=== PATIENT | female | born 1970 | race Caucasian/White ===

== ENCOUNTER → 2016-09-16 | Outpatient (REF) | payer BC | LOC: M LAB REF 16:25 | PROVIDERS: ATTEND Physician Assistant Medical | DX: N39.0 Urinary tract infection, site not specified (principal) ==

== ENCOUNTER → 2016-12-17 | Outpatient (REF) | payer BC ==
[2016-12-17 12:09] LABS: BASO % 0.9 % (0.0-1.0); EOS # 0.1 K/mm3 (0.0-0.50); EOS % 1.8 % (0.0-3.0); LARGE UNSTAINED CELL # 0.2 K/mm3 (0.0-0.4); LARGE UNSTAINED CELL % 2.7 % (0.0-4.0); LYMPH # 1.3 K/mm3 (1.5-4.5); LYMPH % 20.7 % (24.0-44.0); MEAN CORPUSCULAR HEMOGLOBIN 31.2 pg (27.0-33.0); MEAN CORPUSCULAR HGB CONC 33.1 g/dl (32.0-36.5); MEAN CORPUSCULAR VOLUME 94.2 fl (80.0-96.0); MONO # 0.4 K/mm3 (0.0-0.8); MONO % 6.8 % (0.0-5.0); NEUTROPHILS # 3.8 K/mm3 (1.8-7.7); NEUTROPHILS % 67.1 % (36.0-66.0); PLATELET COUNT, AUTOMATED 167 k/mm3 (150-450); WHITE BLOOD COUNT 5.6 K/mm3 (4.0-10.0)
[2016-12-17 13:15] LABS: ALBUMIN/GLOBULIN RATIO 1.29 (1.00-1.93); ALKALINE PHOSPHATASE 36 U/L (45-117); ALT/SGPT 20 U/L (12-78); ANION GAP 8 MEQ/L (8-16); AST/SGOT 21 U/L (15-37); BILIRUBIN,TOTAL 0.4 MG/DL (0.2-1.0); BLOOD UREA NITROGEN 9 MG/DL (7-18); CALCIUM LEVEL 9.3 MG/DL (8.5-10.1); CARBON DIOXIDE LEVEL 28 MEQ/L (21-32); CHLORIDE LEVEL 106 MEQ/L (98-107); CHOLESTEROL LEVEL 152 MG/DL (<200); CREATININE FOR GFR 0.72 MG/DL (0.55-1.02); GLOMERULAR FILTRATION RATE > 60.0 (>58); GLUCOSE, FASTING 89 MG/DL (70-105); POTASSIUM SERUM 4.1 MEQ/L (3.5-5.1); SODIUM LEVEL 142 MEQ/L (136-145); TOTAL PROTEIN 7.1 GM/DL (6.4-8.2); TRIGLYCERIDES LEVEL 34 MG/DL (<150)
== END ==
LOC: M SFHCPLAZ 10:06
PROVIDERS: ATTEND Nurse Practitioner Adult Health
DX: Z00.00 Encounter for general adult medical examination without abnormal findings (principal); Z80.6 Family history of leukemia

== ENCOUNTER → 2016-12-17 | Outpatient (REF) | payer BC | LOC: M LAB REF 13:09 | PROVIDERS: ATTEND Advanced Practice Midwife | DX: Z12.4 Encounter for screening for malignant neoplasm of cervix (principal) ==

== ENCOUNTER → 2017-12-29 | Outpatient (REF) | payer BC ==
[2017-12-29 17:55] LABS: ALBUMIN 4.1 GM/DL (3.2-5.2); ALBUMIN/GLOBULIN RATIO 1.28 (1.00-1.93); ALKALINE PHOSPHATASE 40 U/L (45-117); ALT/SGPT 16 U/L (12-78); ANION GAP 6 MEQ/L (8-16); AST/SGOT 14 U/L (7-37); BILIRUBIN,TOTAL 0.4 MG/DL (0.2-1.0); BLOOD UREA NITROGEN 8 MG/DL (7-18); CALCIUM LEVEL 8.8 MG/DL (8.5-10.1); CARBON DIOXIDE LEVEL 28 MEQ/L (21-32); CHLORIDE LEVEL 107 MEQ/L (98-107); CREATININE FOR GFR 0.67 MG/DL (0.55-1.30); GLOMERULAR FILTRATION RATE > 60.0 (>58); GLUCOSE, FASTING 78 MG/DL (70-100); POTASSIUM SERUM 3.7 MEQ/L (3.5-5.1); SODIUM LEVEL 141 MEQ/L (136-145); TOTAL PROTEIN 7.3 GM/DL (6.4-8.2)
[2017-12-29 18:00] LABS: HEMATOCRIT 38.1 % (36.0-47.0); HEMOGLOBIN 12.5 g/dl (12.0-15.5); MEAN CORPUSCULAR HEMOGLOBIN 29.8 pg (27.0-33.0); MEAN CORPUSCULAR HGB CONC 32.8 g/dl (32.0-36.5); MEAN CORPUSCULAR VOLUME 90.7 fl (80.0-96.0); PLATELET COUNT, AUTOMATED 180 10^3/uL (150-450); RED CELL DISTRIBUTION WIDTH 14.2 % (11.5-14.5)
== END ==
LOC: M SFHCPLAZ 17:07
DX: Z00.00 Encounter for general adult medical examination without abnormal findings (principal); Z80.6 Family history of leukemia
CPT/HCPCS: 84443

== ENCOUNTER → 2018-02-15 | Outpatient (REF) | payer BC ==
[2018-02-18 14:16] LABS: HPV LOW VOL RFLX Positive (Negative)
== END ==
LOC: M LAB REF 09:35
DX: Z12.4 Encounter for screening for malignant neoplasm of cervix (principal)
CPT/HCPCS: G0123

== ENCOUNTER → 2018-06-13 | Outpatient (REF) | payer BC | LOC: M SFHCPLAZ 06-14 10:11 | DX: D22.9 Melanocytic nevi, unspecified (principal) | CPT/HCPCS: 88304 ==

== ENCOUNTER → 2019-01-20 | Outpatient (CLI) | payer BC ==
[2019-01-20 13:51] LABS: HEMOGLOBIN 12.3 g/dl (12.0-15.5); MEAN CORPUSCULAR HEMOGLOBIN 29.3 pg (27.0-33.0); MEAN CORPUSCULAR HGB CONC 31.5 g/dl (32.0-36.5); MEAN CORPUSCULAR VOLUME 92.9 fl (80.0-96.0); PLATELET COUNT, AUTOMATED 186 10^3/uL (150-450); WHITE BLOOD COUNT 5.8 10^3/uL (4.0-10.0)
[2019-01-20 14:17] LABS: ALBUMIN 3.4 GM/DL (3.2-5.2); ALT/SGPT 18 U/L (12-78); BILIRUBIN,TOTAL 0.3 MG/DL (0.2-1.0); BLOOD UREA NITROGEN 12 MG/DL (7-18); CALCIUM LEVEL 8.8 MG/DL (8.5-10.1); CARBON DIOXIDE LEVEL 26 MEQ/L (21-32); CHLORIDE LEVEL 108 MEQ/L (98-107); CHOLESTEROL LEVEL 136 MG/DL (<200); CHOLESTEROL RISK RATIO 2.472 (<5); CREATININE FOR GFR 0.68 MG/DL (0.55-1.30); GLOMERULAR FILTRATION RATE > 60.0 (>51); GLUCOSE, FASTING 90 MG/DL (70-100); HDL CHOLESTEROL 55 MG/DL (>40); LDL CHOLESTEROL 74 MG/DL (<100); NON-HDL-C 81 MG/DL; POTASSIUM SERUM 4.4 MEQ/L (3.5-5.1); SODIUM LEVEL 140 MEQ/L (136-145); THYROID STIMULATING HORMONE 0.962 uIU/ML (0.358-3.740); TOTAL PROTEIN 7.4 GM/DL (6.4-8.2); TRIGLYCERIDES LEVEL 34 MG/DL (<150)
== END ==
LOC: M SMT 08:24
PROVIDERS: ATTEND Nurse Practitioner Adult Health
DX: Z00.00 Encounter for general adult medical examination without abnormal findings (principal)

== ENCOUNTER → 2019-06-13 | Outpatient (REF) | payer BC ==
[2019-06-15 14:07] LABS: HPV HYBRID CAPTURE II Positive (Negative)
== END ==
LOC: M LAB REF 17:19
PROVIDERS: ATTEND Advanced Practice Midwife
DX: Z12.4 Encounter for screening for malignant neoplasm of cervix (principal)
CPT/HCPCS: 87624; G0123

== ENCOUNTER → 2019-07-13 | Outpatient (REF) | payer BC | LOC: M LAB REF 16:28 | PROVIDERS: ATTEND Physician Assistant | DX: R30.0 Dysuria (principal) ==

== ENCOUNTER 2020-03-06 04:38 | Day surgery (SDC) | payer BC ==
[2020-03-06] VITALS (7 sets, daily range): BP systolic 101–116; BP diastolic 52–72
[~2020-03-06] VITALS: Ht 175.3 cm; Wt 81.8 kg
[2020-03-06 05:14] LABS: APPEARANCE, URINE CLEAR (CLEAR); BACTERIA, URINE AUTO NEGATIVE (NEGATIVE); BILIRUBIN, URINE AUTO NEGATIVE (NEGATIVE); BLOOD, URINE BLOOD NEGATIVE (NEGATIVE); COLOR, URINE COLORLESS (YELLOW); GLUCOSE, URINE (UA) AUTO NEGATIVE (NEGATIVE); KETONE, URINE AUTO NEGATIVE (NEGATIVE); LEUKOCYTE ESTERASE, URINE AUTO NEGATIVE (NEGATIVE); NITRITE, URINE AUTO NEGATIVE (NEGATIVE); PROTEIN, URINE AUTO NEGATIVE (NEGATIVE); RBC, URINE AUTO 0 /HPF (0-3); SPECIFIC GRAVITY URINE AUTO 1.001 (1.002-1.035); SQUAMOUS EPITHELIAL CELL UR AU 0 /HPF (0-6); UROBILINOGEN, URINE AUTO 0.2 mg/dL (0.0-2.0); WBC, URINE AUTO 0 /HPF (0-3)
[2020-03-06] MEDS ORDERED: NS 1,000 ML IV ONE (05:15)
[2020-03-06 05:18] LABS: BASO # 0.1 10^3/uL (0.0-0.2); BASO % 0.7 % (0.0-1.0); EOS # 0.2 10^3/uL (0.0-0.5); EOS % 2.9 % (0.0-3.0); HEMATOCRIT 39.5 % (36.0-47.0); HEMOGLOBIN 12.8 g/dl (12.0-15.5); LYMPH # 1.1 10^3/uL (1.5-5.0); LYMPH % 13.2 % (24.0-44.0); MEAN CORPUSCULAR HEMOGLOBIN 29.2 pg (27.0-33.0); MEAN CORPUSCULAR HGB CONC 32.4 g/dl (32.0-36.5); MONO # 0.7 10^3/uL (0.0-0.8); MONO % 8.3 % (0.0-5.0); NEUTROPHILS # 6.2 10^3/uL (1.5-8.5); NEUTROPHILS % 74.5 % (36.0-66.0); PLATELET COUNT, AUTOMATED 200 10^3/uL (150-450); RED BLOOD COUNT 4.39 10^6/uL (4.00-5.40); WHITE BLOOD COUNT 8.3 10^3/uL (4.0-10.0)
[2020-03-06 05:40] LABS: ALBUMIN 3.5 GM/DL (3.2-5.2); ALT/SGPT 16 U/L (12-78); BILIRUBIN,DIRECT < 0.1 MG/DL (0.0-0.2); BILIRUBIN,TOTAL 0.2 MG/DL (0.2-1.0); BLOOD UREA NITROGEN 12 MG/DL (7-18); CALCIUM LEVEL 8.7 MG/DL (8.5-10.1); CARBON DIOXIDE LEVEL 24 MEQ/L (21-32); CHLORIDE LEVEL 108 MEQ/L (98-107); CREATININE FOR GFR 0.79 MG/DL (0.55-1.30); GLOMERULAR FILTRATION RATE > 60.0 (>51); GLUCOSE, FASTING 95 MG/DL (70-100); HCG, SERUM QUALITATIVE NEGATIVE (NEGATIVE); LIPASE 100 U/L (73-393); POTASSIUM SERUM 3.7 MEQ/L (3.5-5.1); SODIUM LEVEL 139 MEQ/L (136-145); TOTAL PROTEIN 7.1 GM/DL (6.4-8.2)
[2020-03-06] MEDS ORDERED: KETOROLAC 30 MG/ML 1ML VIAL IV ONE (05:45)
[2020-03-06 05:49] LABS: AMPHETAMINES LEVEL URINE NEGATIVE (NEGATIVE); BARBITURATES URINE NEGATIVE (NEGATIVE); BENZODIAZEPINES URINE NEGATIVE (NEGATIVE); CANNABINOIDS URINE NEGATIVE (NEGATIVE); COCAINE METABOLITE URINE NEGATIVE (NEGATIVE); METHADONE URINE NEGATIVE (NEGATIVE); OPIATES URINE NEGATIVE (NEGATIVE); PHENCYCLIDINE URINE NEGATIVE (NEGATIVE)
[2020-03-06] MEDS ORDERED: ISOVUE-370 76% 100ML VIAL As Ordered ONE (05:56)
--- NOTE | 2020-03-06 06:27 | REPVR ---
PROCEDURE INFORMATION: Exam: CT Abdomen And Pelvis With Contrast Exam date and time: 03/06/2020 5:41 AM Age: 49 years old Clinical indication: Abdominal pain; Localized; Right lower quadrant (rlq); Additional info: Rlq pain TECHNIQUE: Imaging protocol: Computed tomography of the abdomen and pelvis with intravenous contrast. Radiation optimization: All CT scans at this facility use at least one of these dose optimization techniques: automated exposure control; mA and/or kV adjustment per patient size (includes targeted exams where dose is matched to clinical indication); or iterative reconstruction. Contrast material: ISO; Contrast volume: 100 ml; Contrast route: INTRAVENOUS (IV); COMPARISON: No relevant prior studies available. FINDINGS: Liver: The liver attenuation is 74 Hounsfield units and the spleen is 114 Hounsfield units. Probable small hepatic cyst medially measuring 9 mm. Gallbladder and bile ducts: Normal. No calcified stones. No ductal dilation. Pancreas: Normal. No ductal dilation. Spleen: Normal. No splenomegaly. Adrenals: Normal. No mass. Kidneys and ureters: Extrarenal pelvis of the right kidney. Stomach and bowel: Question of slight wall thickening of the ascending and transverse colon. Appendix: The appendix is enlarged measuring 14 mm with surrounding induration and several appendicoliths including one at the junction with the cecal tip. Intraperitoneal space: Minimal free fluid in the pelvis which is physiologic in amount. Vasculature: Unremarkable. No abdominal aortic aneurysm. Lymph nodes: Unremarkable. No enlarged lymph nodes. Bladder: Unremarkable as visualized. Reproductive: Tampon in position. Bones/joints: Unremarkable. No acute fracture. Soft tissues: Unremarkable. IMPRESSION: 1. Appendicitis with appendicoliths. 2. Fatty infiltration of the liver. 3. Question of mild nonspecific segmental colitis of the ascending and transverse colon. Electronically signed by: Kingsley Benton On 03/06/2020 06:26:45 AM
[2020-03-06] MEDS ORDERED: AMPICILLIN SOD/SULBACTAM SOD 3 GM in D5W MINI-BAG PLUS 100 ML IV ONE ×2 (06:30→12:00)
[2020-03-06] MEDS ORDERED: MORPHINE 4 MG/ML 1ML VIAL/SYRINGE (J2270) IV ONE (06:30)
[2020-03-06] MEDS ORDERED: ONDANSETRON 4MG/2ML VIAL As Ordered ONE ×2 (08:52→18:21)
[2020-03-06] MEDS ORDERED: ONDANSETRON 4MG/2ML VIAL IV ONE (09:00)
[2020-03-06] MEDS ORDERED: MORPHINE 4 MG/ML 1ML VIAL/SYRINGE (J2270) IV PRN ×2 (12:30→17:00)
[2020-03-06] MEDS ORDERED: ONDANSETRON 4MG/2ML VIAL IV PRN ×3 (12:30→19:30)
[2020-03-06] MEDS ORDERED: AMPICILLIN SOD/SULBACTAM SOD 3 GM in D5W MINI-BAG PLUS 100 ML IV SCH (13:00)
[2020-03-06] MEDS ORDERED: BUPIVACAINE HCL 0.25% 30ML VIAL As Ordered ONE (17:44)
[2020-03-06] MEDS ORDERED: LIDOCAINE 1% SDV 30ML VIAL As Ordered ONE (17:44)
[2020-03-06] MEDS ORDERED: SUCCINYLCHOLINE 100 MG/5 ML SYRINGE (J0330) As Ordered ONE (17:45)
[2020-03-06] MEDS ORDERED: dexameTHASONE 4 MG/ML 1ML VIAL (J1100 PER 1MG) As Ordered ONE (18:21)
[2020-03-06] MEDS ORDERED: LIDOCAINE 2% 100MG/5ML SDV (FOR ANES.) As Ordered ONE (18:21)
[2020-03-06] MEDS ORDERED: propofoL 200 MG/20 ML VIAL As Ordered ONE (18:21)
[2020-03-06] MEDS ORDERED: METOCLOPRAMIDE INJ 10MG/2ML VIAL (J2765 PER 1) As Ordered ONE (18:21)
[2020-03-06] MEDS ORDERED: fentaNYL 100 MCG/2 ML INJECTION (J3010) As Ordered ONE (18:21)
[2020-03-06] MEDS ORDERED: PHENYLephrine HCL 500 MCG/5 ML (100MCG/ML) SYRINGE (J2370) As Ordered ONE (18:21)
[2020-03-06] MEDS ORDERED: MIDAZOLAM INJ 2MG/2ML VIAL (J2250 PER 1MG) As Ordered ONE (18:21)
[2020-03-06] MEDS ORDERED: SUGAMMADEX SODIUM 500 MG/5 ML VIAL (BRIDION) As Ordered ONE (18:21)
[2020-03-06] MEDS ORDERED: ROCURONIUM BROMIDE 50 MG/5 ML VIAL As Ordered ONE (18:21)
[2020-03-06] MEDS ORDERED: KETOROLAC 60MG 2ML VIAL As Ordered ONE (18:25)
[2020-03-06] MEDS ORDERED: ACETAMINOPHEN 1000MG 100ML IV BTL (OFIRMEV) (J0131 PER 10MG) As Ordered ONE (18:25)
[2020-03-06] MEDS ORDERED: UNASYN 1.5 GM VIAL As Ordered ONE (18:29)
[2020-03-06] MEDS: LR 1,000 ML IV SCH (19:20)
[2020-03-06] MEDS ORDERED: KETOROLAC 30 MG/ML 1ML VIAL IV PRN (19:30)
[2020-03-06] MEDS ORDERED: ACETAMINOPHEN TAB 650MG DOSE (2X325MG) PO PRN (19:30)
[2020-03-06] MEDS ORDERED: oxyCODONE 5MG TAB PO PRN (19:30)
[2020-03-06] MEDS ORDERED: LR 1,000 ML IV SCH (19:30)
[2020-03-06] MEDS ORDERED: fentaNYL 100 MCG/2 ML INJECTION (J3010) IV PRN (19:30)
[2020-03-06] MEDS ORDERED: MORPHINE 2 MG/ML 1ML VIAL (J2270) IV PRN (19:30)
[2020-03-06] MEDS ORDERED: PERCOCET 5MG/325MG TAB PO PRN ×2 (19:30)
[2020-03-06] MEDS: SENOKOT S TAB PO SCH (21:42)
[2020-03-07 00:30] VITALS: BP 107/61
[2020-03-07] MEDS: AMPICILLIN SOD/SULBACTAM SOD 3 GM in D5W MINI-BAG PLUS 100 ML IV SCH ×2 (00:40→05:19)
[2020-03-07] MEDS: LR 1,000 ML IV SCH (05:20)
[2020-03-07 06:00] VITALS: BP 95/58
--- NOTE | 2020-03-07 06:18 | ROOPDOC ---
[facility] Report Of Operation Report of Operation DATE OF PROCEDURE: 03/06/20 PREPROCEDURE DIAGNOSES: Acute Appendicitis. POSTPROCEDURE DIAGNOSES: Acute Appendicitis with perforation without abscess. PROCEDURE: Laparoscopic Appendectomy. SURGEON: Lisbeth Farrar MD TAXICAB COORDINATOR: ANESTHESIA: General Anesthesia. ESTIMATED BLOOD LOSS: Approximately 10 mL. COMPLICATIONS: none. REMARKS: enlarge appendicx with a couple of areas of dilation from an appendicolith including that of the base of the appendix with focal perforation at the midportion of the appendix, small amount of serous ascites in the pelvis and around the liver, no organized abscess. DESCRIPTION OF PROCEDURE: Patient has been given a dose of Zosyn in the emergency room and was on scheduled doses of Unasyn 3 gm IV Q 6 hrs while awaiting OR.Patient was brought to the operating room, placed supine on the table. Sequential compression device placed for DVT prophylaxis. General endotracheal anesthesia started. The abdomen prepped and draped in usual sterile fashion. We paused for a surgical timeout using both pre-incision safety checklist to verify correct patient, procedure site and additional clinical information prior to beginning the procedure Entry into the abdomen done through an incision above the umbilicus. Veress needle inserted on a controlled fashion. Intra-abdominal placement confirmed with saline drop technique. CO2 insufflation started to a pressure of 15 mmHg. Using the same incision an 8 mm port was placed under direct vision of laparoscope. Insertion site was inspected for injury and none was found. He was placed on a Trendelenburg position the right side tilted to about 30 to allow for better visualization of the appendix. Two 5 mm working ports were placed at the suprapubic area and left lower quadrant area under direct vision. Operative findings: There is a small amount of serous fluid in the pelvis and around the liver. The appendix is inflamed and adhered in between the lateral wall of the cecum and the anterolateral abdominal wall covered with exudates. The appendix is noted to be distended and acutely inflamed with 2 points of distention at the mid appendix and at the base of the appendix and looks to have a focal perforation in between this to distentions would've fecalith are located with drainage of brownish murky fluid although there are no organized abscesses or fluid collections. The visible portions of the small bowel appears normal without any reactive inflammation enteritis. The course of the appendix is close to the insertion of the terminal ileum. The appendix was located, this was bluntly dissected free from the right anterolateral abdominal wall and also to the lateral sidewall of the cecum. The Surrounding bowels retracted away from the appendix. This was grasped to pull the base of the appendix into view. The peritoneal fluid collection was collected to be sent for Gram stain and culture. The perforation is noted between the 2 fecaliths. There is still about a 1 cm portion of the base that appears relatively intact, inflamed. The base of the appendix is located near the insertion of the terminal ileum. The mesoappendix was divided using Harmonic scalpel down to the base. I upsized my umbilical port to a 12 mm port to accommodate the stapler. Using a 45 mm Endo CHARMAINE stapler with a blue load the appendix was divided at its base past the area of perforation. The staple line is inspected and appears healthy. Appendix was then delivered into an Endo Catch bag and retrieved. After re-insufflation the surgical site was inspected for hemostasis, the visualized fluid collections irrigated and suctioned off until clear return. Surrounding areas of the abdomen and inspected for fluid collections or signs of injury. The abdomen was deflated. All ports removed. The umbilical fascial defect repaired with 0 Vicryl in a mattress fashion using a Andrew Griffin device. All skin incisions closed with 4-0 Monocryl in a subcuticular fashion. Dermabond used for dressing.. Patient was promptly awake a nd extubated and brought to recovery room stable. All counts of sponges and instruments verified to be correct. LISBETH FARRAR MD Mar 07, 2020 06:18
[2020-03-07 08:00] VITALS: BP 98/60
[2020-03-07 08:47] LABS: BASO % 0.1 % (0.0-1.0); LYMPH # 0.9 10^3/uL (1.5-5.0); LYMPH % 6.6 % (24.0-44.0); MEAN CORPUSCULAR HEMOGLOBIN 29.5 pg (27.0-33.0); MEAN CORPUSCULAR HGB CONC 32.5 g/dl (32.0-36.5); MEAN CORPUSCULAR VOLUME 90.7 fl (80.0-96.0); MONO # 0.8 10^3/uL (0.0-0.8); MONO % 6.2 % (0.0-5.0); NEUTROPHILS # 11.6 10^3/uL (1.5-8.5); NEUTROPHILS % 86.1 % (36.0-66.0); PLATELET COUNT, AUTOMATED 162 10^3/uL (150-450); RED BLOOD COUNT 3.53 10^6/uL (4.00-5.40); WHITE BLOOD COUNT 13.4 10^3/uL (4.0-10.0)
[2020-03-07 08:54] LABS: HEMOGLOBIN 10.4 g/dl (12.0-15.5)
[2020-03-07] MEDS: SENOKOT S TAB PO SCH (08:56)
[2020-03-07 09:07] LABS: BLOOD UREA NITROGEN 7 MG/DL (7-18); CALCIUM LEVEL 8.4 MG/DL (8.5-10.1); CARBON DIOXIDE LEVEL 27 MEQ/L (21-32); CHLORIDE LEVEL 106 MEQ/L (98-107); CREATININE FOR GFR 0.72 MG/DL (0.55-1.30); GLOMERULAR FILTRATION RATE > 60.0 (>51); GLUCOSE, FASTING 128 MG/DL (70-100); POTASSIUM SERUM 3.3 MEQ/L (3.5-5.1); SODIUM LEVEL 140 MEQ/L (136-145)
[2020-03-07] MEDS ORDERED: PERCOCET PO (09:34)
[2020-03-07] MEDS ORDERED: AMOX875T2 PO (09:43)
[2020-03-07] MEDS ORDERED: METR-265 PO (09:45)
== END 2020-03-07 10:50 | disposition home or self-care (01) ==
LOC: M ED 04:38 → M SDC 07:46 → ENRESERV 07:56 → M PED 11:00 → M SDC 03-07 10:50
PROVIDERS: ATTEND Surgery
DX: K35.33 Acute appendicitis with perforation, localized peritonitis, and gangrene, with abscess (principal)
CPT/HCPCS: 36415; 44970; 74177; 80048; 80076; 80307; 81001; 83690; 84703; 85025; 87070; 87075; 87076; 87077; 87186; 87205; 87486; 87581; 87633; 87798; 88304; 96361; 96365; 96366; 96375; 96376; 99285; J0131; J0330; J1100; J1885; J2250; J2270; J2370; J2405; J2765; J3010; Q9967

== ENCOUNTER 2020-04-22 07:55 | Emergency (ER) | payer BC ==
[~2020-04-22 07:55] MED LIST: AMOX875T2 PO; METR-265 PO; PERCOCET PO
[2020-04-22] MEDS ORDERED: ACETAMINOPHEN 500 MG TAB ONE (08:30)
== END 2020-04-22 09:33 | disposition home or self-care (01) ==
LOC: M ED 07:55
DX: S93.401A Sprain of unspecified ligament of right ankle, initial encounter (principal); S80.212A Abrasion, left knee, initial encounter; S50.02XA Contusion of left elbow, initial encounter; X50.1XXA Overexertion from prolonged static or awkward postures, initial encounter; Y92.89 Other specified places as the place of occurrence of the external cause; Y93.01 Activity, walking, marching and hiking; Y99.0 Civilian activity done for income or pay

== ENCOUNTER → 2020-09-20 | Outpatient (REF) | payer BC ==
[2020-09-20 10:38] LABS: HEMATOCRIT 39.5 % (36.0-47.0); HEMOGLOBIN 12.2 g/dl (12.0-15.5); MEAN CORPUSCULAR HEMOGLOBIN 27.2 pg (27.0-33.0); MEAN CORPUSCULAR HGB CONC 30.9 g/dl (32.0-36.5); MEAN CORPUSCULAR VOLUME 88.2 fl (80.0-96.0); PLATELET COUNT, AUTOMATED 212 10^3/uL (150-450); RED BLOOD COUNT 4.48 10^6/uL (4.00-5.40); WHITE BLOOD COUNT 4.8 10^3/uL (4.0-10.0)
[2020-09-20 11:11] LABS: ALBUMIN 4.2 GM/DL (3.2-5.2); ALT/SGPT 21 U/L (12-78); BILIRUBIN,TOTAL 0.3 MG/DL (0.2-1.0); BLOOD UREA NITROGEN 13 MG/DL (7-18); CALCIUM LEVEL 9.1 MG/DL (8.5-10.1); CARBON DIOXIDE LEVEL 27 MEQ/L (21-32); CHLORIDE LEVEL 107 MEQ/L (98-107); CHOLESTEROL LEVEL 184 MG/DL (<200); CHOLESTEROL RISK RATIO 2.358 (<5); CREATININE FOR GFR 0.78 MG/DL (0.55-1.30); FERRITIN 9 NG/ML (8-252); GLOMERULAR FILTRATION RATE > 60.0 (>51); GLUCOSE, FASTING 91 MG/DL (70-100); HDL CHOLESTEROL 78 MG/DL (>40); IRON (FE) 34 UG/DL (50-170); LDL CHOLESTEROL 97 MG/DL (<100); NON-HDL-C 106 MG/DL; PERCENT SATURATION 8.4 % (13.2-45.0); POTASSIUM SERUM 4.5 MEQ/L (3.5-5.1); SODIUM LEVEL 138 MEQ/L (136-145); TOTAL IRON BINDING CAPACITY 407 UG/DL (250-450); TOTAL PROTEIN 7.2 GM/DL (6.4-8.2); TRIGLYCERIDES LEVEL 43 MG/DL (<150)
== END ==
LOC: M SFHCPLAZ 08:16
PROVIDERS: ATTEND Nurse Practitioner Adult Health
DX: Z00.00 Encounter for general adult medical examination without abnormal findings (principal); Z80.6 Family history of leukemia; Z86.2 Personal history of diseases of the blood and blood-forming organs and certain disorders involving the immune mechanism; Z13.29 Encounter for screening for other suspected endocrine disorder; Z13.220 Encounter for screening for lipoid disorders

== ENCOUNTER → 2020-09-24 | Outpatient (CLI) | payer BC ==
--- NOTE | 2020-09-24 15:38 | REPMRS ---
Patient History The patient states she has not had a clinical breast exam in over a year. 3D TOMOSYNTHESIS WAS PERFORMED. The [facility] lifetime risk for breast cancer is 8.0%. Volpara breast density b. Digital Woman Screen Mammo: September 24, 2020 - Exam #: [id number] Bilateral CC and MLO view(s) were taken. Technologist: Shiloh Rodrigues Technologist FINDINGS: The breast tissue is heterogeneously dense. This may lower the sensitivity of mammography. There has been no change in the appearance of the mammogram from the prior studies. There is a moderate amount of residual fibroglandular tissue which is fairly symmetric. There is no interval development of dominant mass, areas of architectural distortion, or clustered microcalcification typical of malignancy. Assessment: BI-RADS/ACR category 1 mammogram. Negative Mammogram. Recommendation Routine screening mammogram in 1 year (for women over age 40). This mammogram was interpreted with the aid of an FDA-approved computer-aided dectection system. Electronically Signed By: Brodie Tejeda MD 09/24/20 [id number]
== END ==
LOC: M WHC 14:39
PROVIDERS: ATTEND Nurse Practitioner Adult Health
DX: Z12.31 Encounter for screening mammogram for malignant neoplasm of breast (principal)

== ENCOUNTER → 2020-12-03 | Outpatient (REF) | payer BC | LOC: M SFHCWAGY 09:40 | PROVIDERS: ATTEND Advanced Practice Midwife | DX: Z12.4 Encounter for screening for malignant neoplasm of cervix (principal) ==

== ENCOUNTER → 2020-12-23 | Outpatient (REF) | LOC: M LABSMTC 10:54 | PROVIDERS: ATTEND Pediatrics | DX: Z11.52 Encounter for screening for COVID-19 (principal) ==

== ENCOUNTER → 2021-01-22 | Outpatient (CLI) | payer BC ==
--- NOTE | 2021-01-24 01:46 | REP ---
INDICATION: N93.9 ABNORMAL UTERINE AND VAGINAL BLEEDING COMPARISON: None. TECHNIQUE: Transabdominal pelvic ultrasound followed by transvaginal examination for better evaluation of the endometrium and adnexa with color Doppler evaluation of the ovaries. FINDINGS: Bladder is unremarkable and measures 11.0 x 9.0 x 9.7 cm. Normal anteverted uterus measures 9.7 x 4.5 x 4.8 cm. The endometrial complex measures 15 mm thickness. No discrete uterine or endometrial abnormalities are appreciated. Bilateral ovaries are normal in appearance and vascularity without evidence for torsion. Right ovary measures 1.5 x 1.4 x 1.5 cm with 1.5 cm dominant follicle; R I = 0.51. Left ovary measures 1.8 x 1.0 x 2.1 cm; R I = 0.51. No pelvic fluid or adnexal mass lesion. IMPRESSION: Normal pelvic ultrasound. <Electronically signed by Harsha Deras > 01/24/21 [id number]
== END ==
LOC: M WHC 13:27
PROVIDERS: ATTEND Obstetrics & Gynecology
DX: N93.9 Abnormal uterine and vaginal bleeding, unspecified (principal)

== ENCOUNTER → 2021-02-04 | Outpatient (CLI) | payer BC ==
--- NOTE | 2021-02-04 20:53 | ECGEPIP ---
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
== END ==
LOC: M RAD 15:33
PROVIDERS: ATTEND Obstetrics & Gynecology
DX: D64.9 Anemia, unspecified (principal); Z98.51 Tubal ligation status

== ENCOUNTER → 2021-02-07 | Outpatient (CLI) | payer BC | LOC: M LABSMTC 12:42 | PROVIDERS: ATTEND Anesthesiology | DX: Z01.812 Encounter for preprocedural laboratory examination (principal); Z20.822 Contact with and (suspected) exposure to COVID-19 ==

== ENCOUNTER 2021-02-12 12:49 | Day surgery (SDC) | payer BC ==
[~2021-02-12] VITALS: Ht 175.3 cm; Wt 80.2 kg
[~2021-02-12 12:49] MED LIST changes: +LIDOCAINE 1% MDV 20ML VIAL SQ PRN; +LR 1,000 ML IV ONE
[2021-02-12] MEDS ORDERED: VITMTA PO (13:12)
[2021-02-12 13:23] LABS: HEMATOCRIT 38.3 % (36.0-47.0); MEAN CORPUSCULAR HEMOGLOBIN 28.4 pg (27.0-33.0); MEAN CORPUSCULAR HGB CONC 31.3 g/dl (32.0-36.5); MEAN CORPUSCULAR VOLUME 90.8 fl (80.0-96.0); PLATELET COUNT, AUTOMATED 191 10^3/uL (150-450); RED BLOOD COUNT 4.22 10^6/uL (4.00-5.40); WHITE BLOOD COUNT 5.5 10^3/uL (4.0-10.0)
[2021-02-12] MEDS ORDERED: fentaNYL 100 MCG/2 ML INJECTION (J3010) As Ordered ONE (13:30)
--- NOTE | 2021-02-12 14:28 | ROOPDOC ---
[facility] Report Of Operation Report of Operation DATE OF PROCEDURE: 02/12/21 PREOPERATIVE DIAGNOSIS: Abnormal uterine bleeding. POSTOPERATIVE DIAGNOSIS: Abnormal uterine bleeding. PROCEDURE PERFORMED: Hysteroscopy, dilation and curettage with NovaSure ablation. SURGEON: Jacquelin Shay MD REGIONAL HR MANAGER: None. ANESTHESIA: General. ESTIMATED BLOOD LOSS: 5 mL. INTRAVENOUS FLUIDS: 1 liter of lactated Ringer's solution. URINE OUTPUT: 25ml. SPECIMENS: Endometrial curettings. OPERATIVE FINDINGS: The patient with thickened endometrium with bilateral ostia visualized, cavity measured 6.5 x 4.2 cm. Postablation showed desiccation of the endometrium. Ablation lasted approximately 58 seconds. DESCRIPTION OF OPERATION: After informed consent was obtained and written consent was reviewed, the patient was brought to the operating room where she was placed under general anesthesia. She was then placed in lithotomy position, was prepped and draped in a normal sterile fashion. A time out in the operating room was then performed identifying the patient, procedure be performed as well as drug allergies. Lawton speculum was then placed revealing the cervix and the anterior lip of cervix was grasped with a single-tooth tenaculum. The cervix was sounded and the uterine length was obtained. The cervix was then sequentially dilated with Hanks dilators. Hysteroscope was then advanced through the cervical os and the endometrium was surveyed showing a thickened endometrium. Bilateral ostia was visualized. Hysteroscope was then removed and the NovaSure device was then placed through the cervical os where the uterine width was obtained. Uterine width as well as the length was then entered into the device, a cavity assessme nt was performed and ablation was followed for approximately 58seconds. The NovaSure was then removed. The mesh was inspected noted to be intact. Hysteroscope was then advanced showing desiccation of the endometrium. Hysteroscope was then removed. Single-tooth tenaculum was removed. Tenaculum sites were noted be hemostatic. Speculum was then removed. The patient was then taken out of lithotomy position was awakened from general anesthesia and taken recovery in stable condition. Counts were correct. JACQUELIN SHAY MD. Feb 12, 2021 14:28
[2021-02-12] MEDS ORDERED: dexameTHASONE 4 MG/ML 1ML VIAL (J1100 PER 1MG) As Ordered ONE (14:50)
[2021-02-12] MEDS ORDERED: propofoL 200 MG/20 ML VIAL As Ordered ONE (14:50)
[2021-02-12] MEDS ORDERED: LIDOCAINE 2% 100MG/5ML SDV (FOR ANES.) As Ordered ONE (14:50)
[2021-02-12] MEDS ORDERED: ONDANSETRON 4MG/2ML VIAL As Ordered ONE (14:50)
[2021-02-12] MEDS ORDERED: METOCLOPRAMIDE INJ 10MG/2ML VIAL (J2765 PER 1) As Ordered ONE (14:50)
[2021-02-12] MEDS ORDERED: MIDAZOLAM INJ 2MG/2ML VIAL (J2250 PER 1MG) As Ordered ONE (14:50)
[2021-02-12] MEDS ORDERED: KETOROLAC 60MG 2ML VIAL As Ordered ONE (14:53)
[2021-02-12] MEDS ORDERED: ePHEDrine SULFATE 25 MG/5 ML(5MG/ML) SYRINGE As Ordered ONE (15:11)
[2021-02-12] MEDS ORDERED: fentaNYL 100 MCG/2 ML INJECTION (J3010) IV PRN (15:40)
[2021-02-12] MEDS ORDERED: LR 1,000 ML IV SCH (15:40)
[2021-02-12] MEDS ORDERED: ONDANSETRON 4MG/2ML VIAL IV PRN (15:40)
[2021-02-12] MEDS ORDERED: oxyCODONE 5MG TAB PO PRN (15:40)
[2021-02-12] MEDS ORDERED: PERCOCET 5MG/325MG TAB PO PRN (15:40)
[2021-02-12 16:50] VITALS: BP 149/65
[2021-02-12] MEDS ORDERED: KETOROLAC 30 MG/ML 1ML VIAL IV SCH (21:00)
== END 2021-02-12 16:57 | disposition home or self-care (01) ==
LOC: M SDC 12:49
PROVIDERS: ATTEND Obstetrics & Gynecology
DX: N93.9 Abnormal uterine and vaginal bleeding, unspecified (principal); N85.00 Endometrial hyperplasia, unspecified
CPT/HCPCS: 36415; 58563; 85027; 86850; 86900; 86901; 88305; J1100; J1885; J2250; J2405; J2765; J3010

== ENCOUNTER → 2021-07-16 | Outpatient (CLI) | payer BC ==
[~2021-07-16] MED LIST changes: -LIDOCAINE 1% MDV 20ML VIAL SQ PRN; -LR 1,000 ML IV ONE; +VITMTA PO
--- NOTE | 2021-07-16 15:15 | REP ---
INDICATION: PAIN IN RIGHT HIP. COMPARISON: None TECHNIQUE: AP and frog-lateral views FINDINGS: The hip joint space is symmetric and relatively well maintained. There might be minimal narrowing. There is no prominent marginal osteophytosis, buttressing, fracture, dislocation or subluxation. Degenerative changes are seen involving the sacroiliac joint. IMPRESSION: Possible minimal degenerative hip changes. <Electronically signed by Kaleb Alonso > 07/16/21 [id number]
== END ==
LOC: M PLAIMG 14:37
PROVIDERS: ATTEND Nurse Practitioner Adult Health
DX: M25.551 Pain in right hip (principal)

== ENCOUNTER → 2021-11-13 | Outpatient (CLI) | payer BC ==
[2021-11-13 11:33] LABS: HEMATOCRIT 42.3 % (36.0-47.0); HEMOGLOBIN 14.2 g/dl (12.0-15.5); MEAN CORPUSCULAR HEMOGLOBIN 31.9 pg (27.0-33.0); MEAN CORPUSCULAR HGB CONC 33.6 g/dl (32.0-36.5); MEAN CORPUSCULAR VOLUME 95.1 fl (80.0-96.0); PLATELET COUNT, AUTOMATED 174 10^3/uL (150-450); RED BLOOD COUNT 4.45 10^6/uL (4.00-5.40); WHITE BLOOD COUNT 5.2 10^3/uL (4.0-10.0)
[2021-11-13 12:28] LABS: ALT/SGPT 23 U/L (12-78); BILIRUBIN,TOTAL 0.5 MG/DL (0.2-1.0); BLOOD UREA NITROGEN 13 MG/DL (7-18); CALCIUM LEVEL 9.8 MG/DL (8.5-10.1); CARBON DIOXIDE LEVEL 27 MEQ/L (21-32); CHLORIDE LEVEL 107 MEQ/L (98-107); CHOLESTEROL LEVEL 175 MG/DL (<200); CREATININE FOR GFR 0.69 MG/DL (0.55-1.30); GLOMERULAR FILTRATION RATE > 60.0 (>51); GLUCOSE, FASTING 85 MG/DL (70-100); HDL CHOLESTEROL 70 MG/DL (>40); IRON (FE) 96 UG/DL (50-170); LDL CHOLESTEROL 94 MG/DL (<100); NON-HDL-C 105 MG/DL; POTASSIUM SERUM 4.8 MEQ/L (3.5-5.1); SODIUM LEVEL 141 MEQ/L (136-145); TOTAL 25(OH) VITAMIN D 57.8 NG/ML (30.0-100.0); TOTAL IRON BINDING CAPACITY 310 UG/DL (250-450); TRIGLYCERIDES LEVEL 55 MG/DL (<150)
== END ==
LOC: M PLALAB 08:04
PROVIDERS: ATTEND Nurse Practitioner Adult Health
DX: Z00.00 Encounter for general adult medical examination without abnormal findings (principal)

== ENCOUNTER → 2021-11-20 | Outpatient (CLI) | payer BC | LOC: M WHC 15:06 | PROVIDERS: ATTEND Nurse Practitioner Adult Health | DX: Z12.31 Encounter for screening mammogram for malignant neoplasm of breast (principal) ==

== ENCOUNTER → 2022-04-10 | Outpatient (REF) | payer BC | LOC: M PLALAB 15:44 | PROVIDERS: ATTEND Nurse Practitioner Family | DX: Z12.4 Encounter for screening for malignant neoplasm of cervix (principal) | CPT/HCPCS: 87624; G0123 ==

== ENCOUNTER → 2023-01-28 | Outpatient (CLI) | payer BC | LOC: M WHC 14:41 | PROVIDERS: ATTEND Nurse Practitioner Adult Health | DX: Z12.31 Encounter for screening mammogram for malignant neoplasm of breast (principal) ==

== ENCOUNTER → 2023-01-28 | Outpatient (CLI) | payer BC ==
[2023-01-28 17:20] LABS: HEMATOCRIT 43.1 % (36.0-47.0); HEMOGLOBIN 14.4 g/dl (12.0-15.5); MEAN CORPUSCULAR HEMOGLOBIN 31.6 pg (27.0-33.0); MEAN CORPUSCULAR HGB CONC 33.4 g/dl (32.0-36.5); MEAN CORPUSCULAR VOLUME 94.7 fl (80.0-96.0); PLATELET COUNT, AUTOMATED 203 10^3/uL (150-450); RED BLOOD COUNT 4.55 10^6/uL (4.00-5.40); WHITE BLOOD COUNT 6.8 10^3/uL (4.0-10.0)
[2023-01-28 17:48] LABS: ALBUMIN 4.5 G/DL (3.2-5.2); ALKALINE PHOSPHATASE 47 U/L (46-116); ALT/SGPT 20 U/L (7.0-40); AST/SGOT 24 U/L (<34); BILIRUBIN,TOTAL 0.6 MG/DL (0.3-1.2); BLOOD UREA NITROGEN 16 MG/DL (9-23); CALCIUM LEVEL 9.9 MG/DL (8.5-10.1); CARBON DIOXIDE LEVEL 27 MMOL/L (20-31); CHLORIDE LEVEL 103 MMOL/L (98-107); CHOLESTEROL LEVEL 199 MG/DL (<200); CREATININE FOR GFR 0.77 MG/DL (0.55-1.30); GLOMERULAR FILTRATION RATE > 60.0 (>51); GLUCOSE, FASTING 79 MG/DL (60-100); HDL CHOLESTEROL 73.6 MG/DL (>40); LDL CHOLESTEROL 109.6 MG/DL (<100); NON-HDL-C 125.4 MG/DL; SODIUM LEVEL 138 MMOL/L (136-145); TOTAL PROTEIN 7.3 G/DL (5.7-8.2); TRIGLYCERIDES LEVEL 79 MG/DL (<150)
[2023-01-28 17:49] LABS: THYROID STIMULATING HORMONE 4.099 uIU/ML (0.55-4.78)
[2023-01-28 17:50] LABS: FOLLICLE STIMULATING HORMONE 83.8 mIU/ML; LUTEINIZING HORMONE 40.1 mIU/ML; TOTAL 25(OH) VITAMIN D 40.9 NG/ML (20.0-100.0)
== END ==
LOC: M PLALAB 15:18
PROVIDERS: ATTEND Nurse Practitioner Adult Health
DX: Z00.00 Encounter for general adult medical examination without abnormal findings (principal); Z13.21 Encounter for screening for nutritional disorder; N92.6 Irregular menstruation, unspecified; Z80.6 Family history of leukemia; Z13.220 Encounter for screening for lipoid disorders

== ENCOUNTER 2023-04-21 13:12 | Emergency (ER) | payer BC ==
[~2023-04-21] VITALS: Ht 172.7 cm; Wt 93.1 kg
[2023-04-21 13:13] VITALS: BP 168/94; TEMP 98.1; O2SAT 98
== END 2023-04-21 16:43 | disposition left against medical advice (07) ==
LOC: M ED 13:12
DX: R04.0 Epistaxis (principal); Z53.21 Procedure and treatment not carried out due to patient leaving prior to being seen by health care provider

== ENCOUNTER → 2023-04-28 | Outpatient (CLI) | payer BC ==
[2023-04-28 17:15] LABS: BASO # 0.1 10^3/uL (0.0-0.2); BASO % 1.1 % (0.0-1.0); EOS # 0.2 10^3/uL (0.0-0.5); EOS % 4.2 % (0.0-3.0); HEMATOCRIT 43.6 % (36.0-47.0); HEMOGLOBIN 14.5 g/dl (12.0-15.5); LYMPH # 1.9 10^3/uL (1.5-5.0); LYMPH % 36.2 % (24.0-44.0); MEAN CORPUSCULAR HEMOGLOBIN 31.4 pg (27.0-33.0); MEAN CORPUSCULAR HGB CONC 33.3 g/dl (32.0-36.5); MEAN CORPUSCULAR VOLUME 94.4 fl (80.0-96.0); MONO # 0.4 10^3/uL (0.0-0.8); MONO % 7.4 % (2.0-8.0); NEUTROPHILS # 2.7 10^3/uL (1.5-8.5); NEUTROPHILS % 50.7 % (36.0-66.0); PLATELET COUNT, AUTOMATED 190 10^3/uL (150-450); RED BLOOD COUNT 4.62 10^6/uL (4.00-5.40); WHITE BLOOD COUNT 5.3 10^3/uL (4.0-10.0)
[2023-04-28 17:26] LABS: INR 0.95; PROTHROMBIN TIME 12.4 SECONDS (12.5-14.5)
[2023-04-28 17:27] LABS: PARTIAL THROMBOPLASTIN TIME 27.8 SECONDS (24.8-34.2)
== END ==
LOC: M PLALAB 15:47
PROVIDERS: ATTEND Nurse Practitioner Family
DX: R58 Hemorrhage, not elsewhere classified (principal)

== ENCOUNTER → 2023-07-15 | Outpatient (REF) | payer BC ==
[2023-07-15 13:10] LABS: APPEARANCE, URINE CLOUDY (CLEAR); BACTERIA, URINE AUTO 1+ (NEGATIVE); BILIRUBIN, URINE AUTO NEGATIVE (NEGATIVE); BLOOD, URINE BLOOD 2+ (NEGATIVE); COLOR, URINE YELLOW (YELLOW); GLUCOSE, URINE (UA) AUTO NEGATIVE (NEGATIVE); KETONE, URINE AUTO 1+ mg/dL (NEGATIVE); LEUKOCYTE ESTERASE, URINE AUTO 2+ (NEGATIVE); MUCUS, URINE SMALL (NEGATIVE); NITRITE, URINE AUTO NEGATIVE (NEGATIVE); PROTEIN, URINE AUTO 2+ mg/dL (NEGATIVE); RBC, URINE AUTO TNTC /HPF (0-3); SPECIFIC GRAVITY URINE AUTO 1.017 (1.002-1.035); SQUAMOUS EPITHELIAL CELL UR AU 2 /HPF (0-6); TRIPLE PHOSPHATE CRYSTALS SMALL; UROBILINOGEN, URINE AUTO 0.2 mg/dL (0.0-2.0); WBC, URINE AUTO TNTC /HPF (0-3)
== END ==
LOC: M LAB REF 12:37
PROVIDERS: ATTEND Physician Assistant Medical
DX: N39.0 Urinary tract infection, site not specified (principal)

== ENCOUNTER → 2023-12-06 | Outpatient (REF) | LOC: M EMP 10:13 | PROVIDERS: ATTEND Family Medicine | DX: Z11.52 Encounter for screening for COVID-19 (principal) ==

== ENCOUNTER → 2024-01-24 | Outpatient (CLI) | payer BC ==
[2024-01-24 18:19] LABS: HEMATOCRIT 43.6 % (36.0-47.0); HEMOGLOBIN 14.4 g/dl (12.0-15.5); MEAN CORPUSCULAR VOLUME 93.8 fl (80.0-96.0); PLATELET COUNT, AUTOMATED 183 10^3/uL (150-450); RED BLOOD COUNT 4.65 10^6/uL (4.00-5.40); WHITE BLOOD COUNT 5.4 10^3/uL (4.0-10.0)
[2024-01-24 18:39] LABS: ERYTHROCYTE SEDIMENTATION RATE 21 mm/hr (0-30)
[2024-01-24 18:54] LABS: IRON (FE) 89 UG/DL (50-170); PERCENT SATURATION 30.3 % (13.2-45.0); TOTAL IRON BINDING CAPACITY 294 UG/DL (250-425)
[2024-01-24 18:55] LABS: ALBUMIN 4.2 G/DL (3.2-5.2); ALKALINE PHOSPHATASE 55 U/L (46-116); ALT/SGPT 19 U/L (7.0-40); AST/SGOT 19 U/L (<34); BILIRUBIN,TOTAL 0.6 MG/DL (0.3-1.2); BLOOD UREA NITROGEN 12 MG/DL (9-23); CALCIUM LEVEL 10.2 MG/DL (8.5-10.1); CARBON DIOXIDE LEVEL 28 MMOL/L (20-31); CHLORIDE LEVEL 107 MMOL/L (98-107); CHOLESTEROL LEVEL 209 MG/DL (<200); CHOLESTEROL RISK RATIO 3.19 (<5); CREATININE FOR GFR 0.78 MG/DL (0.55-1.30); GLOMERULAR FILTRATION RATE > 60.0 (>51); GLUCOSE, FASTING 75 MG/DL (60-100); HDL CHOLESTEROL 65.5 MG/DL (>40); LDL CHOLESTEROL 130.5 MG/DL (<100); NON-HDL-C 143.5 MG/DL; POTASSIUM SERUM 4.4 MMOL/L (3.5-5.1); SODIUM LEVEL 143 MMOL/L (136-145); TOTAL PROTEIN 7.1 G/DL (5.7-8.2); TRIGLYCERIDES LEVEL 65 MG/DL (<150)
[2024-01-24 18:58] LABS: FERRITIN 124.8 NG/ML (7.3-270.7); THYROID STIMULATING HORMONE 4.998 uIU/ML (0.55-4.78)
[2024-01-24 18:59] LABS: RHEUMATOID FACTOR QUANT 4.6 IU/ML (<14)
[2024-01-24 19:00] LABS: TOTAL 25(OH) VITAMIN D 41.5 NG/ML (20.0-100.0)
[2024-01-26 20:07] LABS: CYCLIC CITRULLINATED PEPTIDE 5 units (0-19); IgG P18 AB Absent (.); IgG P23 AB Absent (.); IgG P28 AB Absent (.); IgG P30 AB Absent (.); IgG P39 AB Absent (.); IgG P41 AB Absent (.); IgG P45 AB Absent (.); IgG P66 AB Absent (.); IgG P93 AB Absent (.); IgM P23 AB Absent (.); IgM P39 AB Absent (.); IgM P41 AB Absent (.); LYME IgG WB INTERPRETATION Negative (.); LYME IgM WB INTERPRETATION Negative (.)
== END ==
LOC: M PLALAB 15:54
PROVIDERS: ATTEND Nurse Practitioner Adult Health
DX: Z80.6 Family history of leukemia (principal)

== ENCOUNTER → 2024-03-07 | Outpatient (CLI) | payer BC ==
[2024-03-07 12:58] LABS: BLOOD UREA NITROGEN 15 MG/DL (9-23); CALCIUM LEVEL 10.2 MG/DL (8.5-10.1); CARBON DIOXIDE LEVEL 30 MMOL/L (20-31); CHLORIDE LEVEL 107 MMOL/L (98-107); CREATININE FOR GFR 0.73 MG/DL (0.55-1.30); GLOMERULAR FILTRATION RATE > 60.0 (>51); GLUCOSE, FASTING 97 MG/DL (60-100); POTASSIUM SERUM 4.4 MMOL/L (3.5-5.1); SODIUM LEVEL 143 MMOL/L (136-145)
== END ==
LOC: M PLALAB 09:16
PROVIDERS: ATTEND Family Medicine
DX: Z01.810 Encounter for preprocedural cardiovascular examination (principal)

== ENCOUNTER → 2024-03-29 | Outpatient (CLI) | payer BC ==
[2024-03-29 11:15] LABS: THYROID STIMULATING HORMONE 2.481 uIU/ML (0.55-4.78)
[2024-03-29 11:16] LABS: FREE T4 0.88 NG/DL (0.89-1.76)
== END ==
LOC: M PLALAB 08:52
PROVIDERS: ATTEND Nurse Practitioner Adult Health
DX: R78.89 Finding of other specified substances, not normally found in blood (principal)

== ENCOUNTER → 2024-06-06 | Outpatient (REF) | LOC: M EMP 10:40 | PROVIDERS: ATTEND Family Medicine | DX: Z11.52 Encounter for screening for COVID-19 (principal) ==

== ENCOUNTER 2024-07-06 06:42 | Day surgery (SDC) | payer BC ==
[~2024-07-06] VITALS: Ht 172.7 cm; Wt 95.8 kg
[2024-07-06] MEDS ORDERED: SIMETHICONE 40MG/0.6ML DROPS 30ML As Ordered ONE (06:56)
[2024-07-06] MEDS ORDERED: propofoL 200 MG/20 ML VIAL As Ordered ONE (06:59)
[2024-07-06] MEDS ORDERED: LIDOCAINE 2% MDV 20ML VIAL As Ordered ONE (06:59)
[2024-07-06] MEDS: NS 250 ML IV ONE (07:05)
[2024-07-06] MEDS ORDERED: GLYCOPYRROLATE INJ 0.2 MG/ML 2 ML VIAL As Ordered ONE (07:34)
[2024-07-06 07:56] VITALS: TEMP 97.7
[2024-07-06 08:12] VITALS: BP 114/56; O2SAT 99
== END 2024-07-06 08:16 | disposition home or self-care (01) ==
LOC: M OPP 06:42
PROVIDERS: ATTEND Internal Medicine Gastroenterology
DX: Z12.11 Encounter for screening for malignant neoplasm of colon (principal); Z80.0 Family history of malignant neoplasm of digestive organs; D12.0 Benign neoplasm of cecum; K57.30 Diverticulosis of large intestine without perforation or abscess without bleeding; K64.8 Other hemorrhoids; Z86.16 Personal history of COVID-19
CPT/HCPCS: 45385; 88305; J1596

== ENCOUNTER → 2024-07-18 | Outpatient (REF) | payer BC | LOC: M SFHCWAGY 15:07 | PROVIDERS: ATTEND Nurse Practitioner Family | DX: Z12.4 Encounter for screening for malignant neoplasm of cervix (principal) ==

== ENCOUNTER → 2024-07-18 | Outpatient (CLI) | payer BC | LOC: M WHC 09:30 | PROVIDERS: ATTEND Nurse Practitioner Family | DX: Z12.31 Encounter for screening mammogram for malignant neoplasm of breast (principal) ==

== ENCOUNTER → 2025-07-31 | Outpatient (CLI) | payer BC | LOC: M PLAIMG 14:32 | PROVIDERS: ATTEND Nurse Practitioner Adult Health | DX: M79.671 Pain in right foot (principal) ==